=== PATIENT | female | born 1960 | race Caucasian/White ===

== ENCOUNTER 2016-09-18 06:56 | Day surgery (SDC) | payer SELFPAY ==
[~2016-09-18 06:56] MED LIST: Buffered Lidocaine 1% SYR 3ML* 3 ML/SYR SYRINGE INTRADERM ONE
[2016-09-18] MEDS ORDERED: Clindamycin 900 MG IVPREMIX(* 900 MG/50 ML SDV IV ONE (07:21)
[2016-09-18] MEDS ORDERED: Dexamethasone IV* 4 MG/ML 1 ML (4 MG) ONE (07:21)
[2016-09-18] MEDS ORDERED: BSS OPTH.SOL* BTL ONE (07:25)
[2016-09-18] MEDS ORDERED: Lidocain 1% EPI 1:100,000 * 30 ML MDV ONE (07:25)
[2016-09-18] MEDS ORDERED: Bacitracin OPHTH.OINT* 3.5 GM ONE (07:25)
[2016-09-18] MEDS ORDERED: fentaNYL* 50 MCG/ML 2 ML VIAL (100 MCG VIAL) ONE (08:25)
[2016-09-18] MEDS ORDERED: Midazolam* 1 MG/ML 5 ML VIAL (5 MG) ONE (08:25)
[2016-09-18] MEDS ORDERED: Propofol* 10 MG/ML 20 ML BTL IV PUSH ONE (08:42)
[2016-09-18] MEDS ORDERED: Artificial Tear OPHTH.OINT* 3.5 GM ONE (09:45)
[2016-09-18 10:51] VITALS: BP 110/71
--- NOTE | 2016-09-19 01:09 | OP ---
DATE OF OPERATION: 09/18/16 - [facility] DATE OF : 60 SURGEON: Gab Campbell MD, DMD NEGOTIATIONS DIRECTOR: Weston Wyatt MD ANESTHESIOLOGIST: Bee Hubbard MD ANESTHESIA: Monitored anesthesia care PRE-OP DIAGNOSIS: Desire for bilateral lower lid blepharoplasty. POST-OP DIAGNOSIS: Desire for bilateral lower lid blepharoplasty. OPERATIVE PROCEDURE: Conservative bilateral lower lid blepharoplasty. INDICATIONS: The patient is a 56-year-old female with the above-noted diagnosis. I discussed with her the full range of treatment options, alternatives, advantages, and disadvantages of each, and potential risks and complications in detail, and she indicates she understands and wishes to proceed. DESCRIPTION OF PROCEDURE: The patient was brought to the operating room suite and placed in the standard position for blepharoplasty and was prepped and draped in the standard fashion. [place] protocol time-out procedure was completed. Attention was directed to the lower lids where a fine-tip surgical pen was used to create the markings for the lower lid incisions. Bilateral administration of 2.5 cc of 0.25% Marcaine with 1:200,000 epinephrine was administered. After allowing for local anesthesia and hemostasis, attention was directed first to the right side where the pinch technique was used to create the thin mound of skin for conservative lower lid skin incision. The [employer] radiofrequency unit was then used with fine wire tip in pure-cut mode to incise through the orbicularis to the level for the septum. The septum was opened in a few places very conservatively to allow for billowing of excess fat under gentle pressure. Excess fat was contoured away with tenotomy scissors and bipolar cautery. There was a little bit of residual skin excess and so the lower lid flap was carefully trimmed with small sharp curved iris scissors. This provided for ideal skin drape. 5-0 Vicryl was used to anchor the orbicularis to the periosteum at the lateral orbital rim, level with Whitnall's tubercle. Skin drape was excellent with no tension. Closure was accomplished in a running fashion with 6-0 nylon. Attention was directed to the left side where the identical procedure was performed in the identical fashion. At the completion of the procedure, the patient was awake and demonstrated good vision in OS and OD. Estimated blood loss for the procedure was negligible, and was certainly less than 2 cc. Skin was sent to pathology per protocol. All sponge and needle counts were correct. Lacri-Lube ointment was applied to the sutures with sterile Q-tips. The patient was taken to the postanesthesia care unit, alert, awake and stable with good vision in OS and OD, and excellent contour improvement. [id number] #: [id number] MTDD
== END 2016-09-18 10:43 | disposition home or self-care (01) ==
LOC: OREAST 06:56
PROVIDERS: ATTEND Oral & Maxillofacial Surgery
DX: Z41.1 Encounter for cosmetic surgery (principal)
CPT/HCPCS: 88300; A9270-GY; J1100; J2250; J2704; J3010